=== PATIENT | female | born 1960 | race Caucasian/White ===

== ENCOUNTER → 2021-08-01 | Outpatient (CLI) | payer OTHER ==
[~2021-08-01] MED LIST: NITR100CA PO
== END | disposition home or self-care (01) ==
LOC: LAB 16:26 → LAB SHORT 16:26
DX: R55 Syncope and collapse (principal)
CPT/HCPCS: 87077; 87086; 87186

== ENCOUNTER → 2021-08-10 | Outpatient (CLI) | payer OTHER | END | disposition home or self-care (01) | LOC: LAB SHORT 13:29 → LAB 13:29 | DX: D22.5 Melanocytic nevi of trunk (principal); D03.39 Melanoma in situ of other parts of face; L57.8 Other skin changes due to chronic exposure to nonionizing radiation; L70.0 Acne vulgaris | CPT/HCPCS: 88305 ==

== ENCOUNTER → 2021-08-31 | Outpatient (CLI) | payer OTHER | END | disposition home or self-care (01) | LOC: LAB SHORT 11:12 → PLD 11:12 | DX: D03.39 Melanoma in situ of other parts of face (principal) | CPT/HCPCS: 88305 ==

== ENCOUNTER → 2022-07-03 | Outpatient (CLI) | payer OTHER | END | disposition home or self-care (01) | LOC: LAB SHORT 13:20 → LAB 13:20 | DX: J02.9 Acute pharyngitis, unspecified (principal); H57.89 Other specified disorders of eye and adnexa; Z91.09 Other allergy status, other than to drugs and biological substances | CPT/HCPCS: 87081 ==

== ENCOUNTER 2023-01-25 12:21 | Day surgery (SDC) | payer OTHER ==
[~2023-01-25] VITALS: Ht 167.6 cm; Wt 65.3 kg
[2023-01-25] MEDS ORDERED: DOXY100 (13:11)
[2023-01-25 14:36] VITALS: BP 112/80
== END 2023-01-25 14:53 | disposition home or self-care (01) ==
LOC: ORSCSDS 12:21
PROVIDERS: Surgery
PROC: 0DBM8ZX Excision of Descending Colon, Via Natural or Artificial Opening Endoscopic, Diagnostic (ICD-10-PCS; principal; 2023-01-25 13:30)
DX: Z12.11 Encounter for screening for malignant neoplasm of colon (principal); D12.4 Benign neoplasm of descending colon; F17.210 Nicotine dependence, cigarettes, uncomplicated; Z79.899 Other long term (current) drug therapy
CPT/HCPCS: 88305; J0461; J2001; J2405; J2704; J7120

== ENCOUNTER → 2024-06-05 | Outpatient (CLI) | payer OTHER ==
[~2024-06-05] MED LIST changes: +DOXY100
== END ==
LOC: LAB SHORT 13:36 → LAB 13:36
DX: R35.0 Frequency of micturition (principal)
CPT/HCPCS: 87086

== ENCOUNTER → 2025-01-07 | Outpatient (CLI) | payer MEDICARE, OTHER ==
[2025-01-08 07:28] LABS: Candida Group, PCR NOT DETECTED (NOT DETECT); Candida glabrata-krusei, PCR NOT DETECTED (NOT DETECT)
[2025-01-08 07:33] LABS: Bacterial Vaginosis PCR Positive (NEGATIVE)
== END ==
LOC: LAB SHORT 17:25 → LAB 17:25
DX: Z01.419 Encounter for gynecological examination (general) (routine) without abnormal findings (principal)
CPT/HCPCS: 81515

== ENCOUNTER → 2025-02-12 | Outpatient (CLI) | payer OTHER ==
[2025-02-12 17:01] LABS: Bacterial Vaginosis PCR Negative (NEGATIVE); Candida Group, PCR NOT DETECTED (NOT DETECT); Candida glabrata-krusei, PCR NOT DETECTED (NOT DETECT)
== END ==
LOC: LAB SHORT 11:06 → LAB 11:06
DX: N76.0 Acute vaginitis (principal); B96.89 Other specified bacterial agents as the cause of diseases classified elsewhere; R39.9 Unspecified symptoms and signs involving the genitourinary system
CPT/HCPCS: 81515; 87077; 87086; 87186